=== PATIENT | female | born 2005 | race African-American/Black ===

== ENCOUNTER 2025-03-19 18:27 | Emergency (ER) | payer MEDICAID, SELFPAY ==
[2025-03-19 18:29] VITALS: PULSE 87; RESP 18; TEMP 36.4; O2SAT 100; BMI 23.4
--- NOTE | 2025-03-19 18:50 | EX.ED.UPPERE ---
HPI History of Present Illness Chief Complaint: Upper Extremity Injury Narrative Narrative: Patient is a 19-year-old female presenting to the emergency department for a left ring finger injury. 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 States that her finger started to swell and she could not get her ring off. This is why she is here today. Denies any other injuries. PFSH PFSH Allergy/AdvReac Type Severity Reaction Status Date / Time No Known Allergies Allergy Verified 03/19/25 18:29 Social History Smoking Status: Never smoker ROS ROS ED ROS Narrative see HPI EXAM Physical Exam Narrative Exam Narrative: Vital signs: Reviewed General: Alert and orientedx3. No acute distress HEENT: Head is normocephalic and atraumatic, sinuses nontender, pupils equal round and reactive. Nares are patent. Oropharynx and throat exams normal. Neck: Supple without lymphadenopathy nontender Cardiovascular: Regular rate and rhythm, no murmurs. No rubs or gallops. Normal S1 and S2 Respiratory: Clear to auscultation bilaterally. No wheezes, rales, rhonchi Abdominal: Soft and nontender. Normal bowel sounds. No guarding or rebound. Nonsurgical abdomen Extremities: Mild swelling and tenderness to palpation to the left ring finger distal phalanx. No nail trauma. No subungual hematoma. No tenderness to palpation of the middle or proximal phalanx, additional fingers or hand. Radial pulses intact bilateral. Normal range of motion. Specifically normal flexion and extension at DIP joint of the left ring finger. Normal sensation. Ring on base of left ring finger. Skin: No rash or redness. The rest of the physical exam is unremarkable Const Vital Signs: 03/19/25 18:29 Temperature 97.5 F L Temperature Source Temporal Pulse Rate 87 Respiratory Rate 18 Pulse Ox 100 Oxygen Delivery Method Room Air MDM MDM MDM Narrative Medical decision making narrative: Patient is a 19-year-old female presenting to the emergency department for a left ring finger injury. Patient was seen and examined. Vitals are stable. Patient resting bed comfortably no acute distress. X-ray of the finger was obtained to rule out fracture. Neurovascularly intact. Ring was removed with a ring cutter. X-ray reviewed by myself, no fracture or dislocation noted. Radiology read with negative findings as well. Patient reevaluated. Updated on the negative x-ray. Given RICE instructions for pain and swelling at home. Given primary care follow-up and instructed if she still having pain in the finger in 1 week to have a repeat x-ray to look for any occult fracture that was missed due to swelling. Patient agreeable with the plan. Instructed to not put a ring on the finger for the next week until swelling is improved. Patient discharged from the Emergency Department. I do not feel that the patient's evaluation reveals any acute reason for admission at this time. I instructed them to either follow-up with their primary care physician or promptly return to the Emergency Department for reevaluation should symptoms worsen or new symptoms develop. I explained what symptoms would indicate the need to return to the emergency department. Shared decision making was used. The patient voiced understanding of the treatment plan and is agreeable with it. Clinical impression Finger injury Tight ring on finger History & Record Review Discussion w/independent historian: Patient Radiography X-Ray: Read by ED Physician, Normal and No Fracture Discharge Plan Triage Chief Complaint: Upper Extremity Injury ED Provider: Serenity Driscoll Dx/Rx/DC Orders Clinical Impression: Finger injury, Tight ring on finger Instructions: ED Finger Sprain, ED RICE Stand Alone Forms: Work / School Excuse Primary Care Provider: Care Physician,No Primary Referrals: Ashley Parekh MD [Med Staff - Detail Sergeant] - 2 Days Care Physician,No Primary [Primary Care Provider] - Activity Restrictions/Additional Instructions: Take Motrin or Tylenol for pain control. Ice your finger to help with pain and swelling. Follow-up with your primary care doctor as soon as possible and return to the ED with any new or worsening symptoms. Print Language: British Disposition Disposition: Home, Self Care
--- NOTE | 2025-03-19 18:55 | RAD_ITS ---
PROCEDURE: FINGER(S) MIN 2 VIEWS 03/19/2025 REASON FOR EXAM: SWELLING/PAIN TECHNIQUE: Procedure Code: RADFIN Modality: DX Procedure: FINGER(S) MIN 2 VIEWS Laterality: FINDINGS: No evidence of acute fracture or dislocation. The joint spaces are maintained. The soft tissues are unremarkable. RAD/Finger(s) Min 2 Views IMPRESSION: No acute osseous abnormalities. Reading Location: [id number]
[2025-03-19 20:25] VITALS: BP 114/67; PULSE 77; RESP 16; TEMP 36.6; O2SAT 99
== END 2025-03-19 20:26 | disposition home or self-care (01) ==
PROVIDERS: Emergency Provider Student in an Organized Health Care Education/Training Program; Visit Provider Student in an Organized Health Care Education/Training Program
DX: S60.445A External constriction of left ring finger, initial encounter (principal); W49.04XA Ring or other jewelry causing external constriction, initial encounter; S69.92XA Unspecified injury of left wrist, hand and finger(s), initial encounter; W24.1XXA Contact with transmission devices, not elsewhere classified, initial encounter; Y99.0 Civilian activity done for income or pay
CPT/HCPCS: 73140; 99282